=== PATIENT | male | born 1960 | race Caucasian/White ===

== ENCOUNTER → 2023-12-24 | Outpatient (CLI) | payer BC ==
[2023-12-24 14:18] LABS: Basophils # (A) 0.06 X 10*3/uL (0.00-0.10); Basophils % (A) 0.9 %; Eosinophils # (A) 0.16 X 10*3/uL (0.04-0.35); Eosinophils % (A) 2.5 %; HCT 46.6 % (39.6-50.0); HGB 15.6 g/dL (13.0-17.0); Lymphocytes # (A) 1.35 X 10*3/uL (0.90-5.00); Lymphocytes % (A) 20.7 %; MCH 30.8 pg (27.0-32.0); MCHC 33.5 g/dL (32.0-37.0); MCV 91.9 FL (80.0-97.0); Mean Platelet Volume 10.6 FL (9.5-12.2); Monocytes # (A) 0.59 X 10*3/uL (0.20-1.00); NRBC Per 100 WBC 0 X 10*3/uL (0.00-0.01); Neutrophils # (A) 4.34 X 10*3/uL (1.80-7.70); Neutrophils % (A) 66.4 %; Platelet Count 219 X 10*3/uL (140-440); RBC 5.07 X 10*6/uL (4.40-5.60); RDW 11.7 % (11.5-14.5); WBC 6.53 X 10*3/uL (4.50-10.00)
[2023-12-24 14:58] LABS: ALT 29 U/L (10-49); AST 27 U/L (14-35); Albumin 4.6 g/dL (3.8-4.9); Albumin/Globulin Ratio 1.92 Ratio (1.60-3.17); Alkaline Phosphatase 89 U/L (41-126); Blood Urea Nitrogen 14.6 mg/dL (9.0-27.0); Calcium 9.9 mg/dL (8.7-10.3); Carbon Dioxide 25.5 mmol/L (21.6-31.8); Chloride 101 mmol/L (96-109); Chol/HDL Ratio 4.73 Ratio; Globulin 2.4 g/dL (1.6-3.3); Glucose 100 mg/dL (70-110); LDL Cholesterol,Calculated 148.2 mg/dL (0.0-131.0); Potassium 4.6 mmol/L (3.5-5.5); Sodium 138 mmol/L (135-145); T4, Free (Free Thyroxine) 1.16 ng/dL (0.80-1.80); Total Bilirubin 0.6 mg/dL (0.3-1.2)
== END | disposition home or self-care (01) ==
LOC: LABWHC1 09:11
PROVIDERS: ATTEND Internal Medicine Critical Care Medicine
DX: Z12.5 Encounter for screening for malignant neoplasm of prostate (principal); M24.10 Other articular cartilage disorders, unspecified site; J32.9 Chronic sinusitis, unspecified; E03.9 Hypothyroidism, unspecified; Z86.718 Personal history of other venous thrombosis and embolism
CPT/HCPCS: 84439; 80061; 80053; 84443; 85025; 82306; 83036; 36415; G0103

== ENCOUNTER → 2024-12-27 | Outpatient (CLI) | payer BC ==
[2024-12-27 15:06] LABS: Basophils # (A) 0.07 X 10*3/uL (0.00-0.10); Basophils % (A) 1.3 %; Eosinophils # (A) 0.18 X 10*3/uL (0.04-0.35); Eosinophils % (A) 3.2 %; HCT 44.2 % (39.6-50.0); HGB 14.6 g/dL (13.0-17.0); Lymphocytes # (A) 1.11 X 10*3/uL (0.90-5.00); Lymphocytes % (A) 19.8 %; MCH 30.7 pg (27.0-32.0); MCV 93.1 FL (80.0-97.0); Mean Platelet Volume 10.8 FL (9.5-12.2); Monocytes % (A) 8.9 %; NRBC Per 100 WBC 0 X 10*3/uL (0.00-0.01); Neutrophils # (A) 3.72 X 10*3/uL (1.80-7.70); Neutrophils % (A) 66.4 %; Platelet Count 208 X 10*3/uL (140-440); RBC 4.75 X 10*6/uL (4.40-5.60); RDW 12.4 % (11.5-14.5)
[2024-12-27 15:36] LABS: ALT 46 U/L (10-49); AST 41 U/L (14-35); Albumin 4.2 g/dL (3.8-4.9); Albumin/Globulin Ratio 1.91 Ratio (1.60-3.17); Alkaline Phosphatase 84 U/L (41-126); BUN/Creat Ratio 14.56 Ratio (12.00-20.00); Blood Urea Nitrogen 13.1 mg/dL (9.0-27.0); Calcium 9.5 mg/dL (8.7-10.3); Carbon Dioxide 25.6 mmol/L (21.6-31.8); Chloride 103 mmol/L (96-109); Chol/HDL Ratio 3.61 Ratio; Globulin 2.2 g/dL (1.6-3.3); Glucose 99 mg/dL (70-110); LDL Cholesterol,Calculated 118.9 mg/dL (0.0-131.0); Potassium 4.7 mmol/L (3.5-5.5); Sodium 140 mmol/L (135-145); T4, Free (Free Thyroxine) 1.12 ng/dL (0.80-1.80); Total Bilirubin 0.6 mg/dL (0.3-1.2); Total Protein 6.4 g/dL (6.2-8.2); VLDL Calculation 19.94 mg/dL (5.00-40.00)
== END | disposition home or self-care (01) ==
LOC: LABWHC1 09:03
PROVIDERS: ATTEND Internal Medicine Critical Care Medicine
DX: Z12.5 Encounter for screening for malignant neoplasm of prostate (principal); E03.9 Hypothyroidism, unspecified; E78.5 Hyperlipidemia, unspecified; M24.10 Other articular cartilage disorders, unspecified site
CPT/HCPCS: 84439; 80061; 80053; 84443; 85025; 82306; 83036; 36415; G0103